=== PATIENT | female | born 1995 | race Caucasian/White ===

== ENCOUNTER 2017-11-13 03:43 | Emergency (ER) | payer MEDICAID ==
[2017-11-13] MEDS ORDERED: IBUPROFEN 200 MG TAB PO ONE (04:43)
[2017-11-13] MEDS ORDERED: OSELTAMIVIR PHOSPHATE 75 MG CAP PO ONE (05:14)
--- NOTE | 2017-11-13 05:14 | EDPHY ---
H & P Stated Complaint: cough, fever Time Seen by Provider: 11/13/17 04:13 HPI/ROS: HPI The patient presents with cough and fever which began about 24 hr ago which are associated with generalized malaise and myalgias. Symptoms have been constant though getting progressively worse. She has 2 sick children at home who have tested positive for flu A over the last 4 days. She has taken Excedrin for her symptoms with some improvement. REVIEW OF SYSTEMS Constitutional: Positive for fever Eyes: No discharge. ENT: No sore throat. Cardiovascular: No chest pain, no palpitations. Respiratory: No cough, no shortness of breath. Gastrointestinal: No abdominal pain, no vomiting. Genitourinary: No hematuria. Musculoskeletal: No back pain. Skin: No rashes. Neurological: No headache. PMHx: Healthy Soc Hx: Lives at home with family, works at an assisted living facility PHYSICAL General Appearance: Alert, no distress Eyes: Pupils equal and round no pallor or injection ENT, Mouth: Mucous membranes moist Respiratory: There are no retractions, lungs are clear to auscultation Cardiovascular: Tachycardic rate with regular rhythm Gastrointestinal: Abdomen is soft and non-tender, no masses, bowel sounds normal Neurological: A&O, moves all extremities Skin: Warm and dry, no rashes Musculoskeletal: Neck is supple non tender Extremities: symmetrical, full range of motion Psychiatric: Patient is oriented X 3, there is no agitation Source: Patient Exam Limitations: No limitations - Personal History LMP (Females 10-55): Extended Cycle BCP/Inj Current Tetanus/Diphtheria Vaccine: Yes Tetanus Vaccine Date: 2015 - Medical/Surgical History Hx Asthma: No Hx Chronic Respiratory Disease: No Hx Diabetes: No Hx Cardiac Disease: No Hx Renal Disease: No Hx Cirrhosis: No Hx Alcoholism: No Hx HIV/AIDS: No Hx Splenectomy or Spleen Trauma: No Other PMH: denies - Social History Smoking Status: Never smoked Constitutional: Initial Vital Signs Temperature (C) 38.3 C 11/13/17 03:53 Heart Rate 122 H 11/13/17 03:53 Respiratory Rate 18 11/13/17 03:53 Blood Pressure 121/76 H 11/13/17 03:53 O2 Sat (%) 94 11/13/17 03:53 O2 Delivery Mode Room Air Allergies/Adverse Reactions: codeine Allergy (Verified 11/13/17 03:56) Hives Milk Containing Products [dairy] Allergy (Verified 11/13/17 03:56) soy Allergy (Verified 11/13/17 03:56) Home Medications: Medication Instructions Recorded Oseltamivir Phosphate [Tamiflu 75 75 mg PO BID 5 Days cap 11/13/17 mg (*)] Medical Decision Making Differential Diagnosis: 22-year-old female presents with 1 day of cough, malaise, myalgias, fever. On exam, she is febrile and tachycardic. We have given her a dose of ibuprofen here. Rapid flu is positive for flu A. I will initiate treatment given 24 hr of symptoms. I have discussed supportive measures as well. Differential diagnoses considered include influenza, strep pharyngitis, pneumonia. - Data Points Laboratory Results: 11/13/17 04:09 Nasal Influenza A PCR FLU A DETECTED H (NEGATIVE) Nasal Influenza B PCR NEGATIVE FOR FLU B (NEGATIVE) RSV (PCR) NEGATIVE FOR RSV (NEGATIVE) Medications Given: Discontinued Medications Ibuprofen (Motrin) 400 mg PO EDNOW ONE Stop: 11/13/17 04:44 Last Admin: 11/13/17 05:02 Dose: 400 mg Departure - Departure Disposition: Home, Routine, Self-Care Clinical Impression: Influenza A Condition: Good Instructions: Influenza (ED) Additional Instructions: Please take the Tamiflu as prescribed. You can take ibuprofen 400 mg with acetaminophen 650 mg every 6 hr as needed for your fever and muscle aches. Return to the emergency department if your worse in any way. Referrals: [facility],. [Clinic] - As per Instructions Prescriptions: Oseltamivir Phosphate [Tamiflu 75 mg (*)] 75 mg PO BID 5 Days cap
[2017-11-13 05:29] VITALS: BP 121/74; PULSE 74; RESP 16; TEMP 100; O2SAT 96
== END 2017-11-13 05:29 | disposition home or self-care (01) ==
DX: J10.1 Influenza due to other identified influenza virus with other respiratory manifestations (principal)

== ENCOUNTER 2018-12-15 21:27 | Emergency (ER) | payer MEDICAID ==
[2018-12-15] MEDS ORDERED: IBUPROFEN 200 MG TAB PO ONE (21:46)
[2018-12-15] MEDS ORDERED: CEPHALEXIN 500 MG CAP PO ONE (21:47)
--- NOTE | 2018-12-15 21:52 | EDPHY ---
General Time Seen by Provider: 12/15/18 21:47 Narrative: CLINICAL IMPRESSION: Left foot pain, spider bite with mild cellulitis ASSESSMENT/PLAN: Patient is a 23-year-old female with no significant medical history presents to the emergency department with complaints of left foot pain after dropping a heavy metal object onto yesterday as well as a spider bite on her right thigh with increasing redness. Physical exam reveals 3 cm circumferential erythema around spider bite consistent with mild cellulitis. There is no evidence of abscess, necrotizing skin infection or deep space infection. Patient was given Keflex. Left foot x-ray was negative. There is no evidence of fracture, dislocation or compartment syndrome. Patient is well established with PCP, she will follow up for wound check. Also given a podiatry referral. Return precautions discussed. DIFFERENTIAL DX: Differential diagnosis including but not limited to fracture, compartment syndrome, contusion, insect bite, cellulitis, sepsis, necrotizing skin infection , deep space infection ED COURSE: 2151: Case discussed with Dr. Caputo CHIEF COMPLAINT: Left foot pain, right thigh spider bite HPI: Patient is a 23-year-old female with no significant medical history presents to the emergency department with complaints of left foot pain after dropping a heavy metal object onto it yesterday as well as a spider bite to her right thigh appears more red today. Patient reports a history of fracture to her foot 3 years prior, yesterday she was caring a metal heavy and fill when she accidentally dropped it on her left mid foot. This is the exact location that she had her previous fracture. She reports bruising however denies any swelling. She denies any significant pain at rest however has severe pain with ambulation. She denies any numbness or tingling of the foot or digits. Patient also reports a possible spider bite yesterday, feels that it is grown in size and more painful today. She has not tried anything for pain. She denies any fevers, chills, chest pain or shortness of breath. She has had no nausea or vomiting and her appetite has been normal. No history of MRSA infections. PAST MEDICAL HISTORY: Denies Pertinent Past Surgical History: Denies Family History: Not contributory Social History: Denies cigarette smoking or illicit drug use ROS: A full 10 point review of systems was negative except for those mentioned in HPI. PHYSICAL EXAM: General Appearance: Alert, well-appearing and in no acute distress. HENT: Normocephalic, atraumatic. External ears are normal. Nares are clear, mucosa is pink. Oropharynx is clear. Eyes: PERRLA, EOMI. Conjunctiva pink, no pallor or injection. Neck: Supple, nontender, no lymphadenopathy, no midline pain, FROM, no meningismus. Respiratory: There are no retractions, lungs are clear to auscultation. Cardiac: Regular rate and rhythm, no murmurs or gallops. Gastrointestinal: Abdomen is soft, nontender, bowel sounds normal, no masses/ hernia, no rigidity, guarding or focal peritoneal findings. Skin: Warm, dry. Left thigh with 3 cm circumferential area of erythema and mild tenderness to palpation. Upper Extremities: Bilateral upper extremities unremarkable-Intact distal pulses, Full range of motion intact, no tenderness, no ecchymosis or edema. Lower Extremities: Right thigh compartment is soft, mildly tender at site of presumed insect bite. Right lower extremity is otherwise unremarkable. Intact distal pulses, No edema, No tenderness, No cyanosis, full range of motion intact. Left foot with ecchymosis on the dorsal aspect of the midfoot with associated tenderness to palpation. No appreciable edema. No navicular tenderness, no tenderness at the base of the 5th metatarsal, no 1st webspace tenderness. Patient is able to wiggle all toes, 2 point discrimination is intact distally. She has no tenderness of medial or lateral malleoli. No calf tenderness bilaterally. 2+ dorsalis pedis. MEDICAL DECISION MAKING: Patient was seen independently. Secondary supervising physician at time of evaluation was Dr. Caputo, he did not evaluate this patient. Diagnosis: Left foot pain, right thigh spider bite with cellulitis. New, requires workup Summary: Patient is afebrile and not toxic appearing, no acute distress. Physical exam reveals 3 cm circumferential area of erythema around insect bite as well as contusion noted to the dorsal aspect of the left midfoot. There was no evidence of systemic infection, abscess, necrotizing skin infection or deep space infection. Foot x-ray was negative for acute bony abnormality, no findings to suggest fracture, dislocation or compartment syndrome. The patient will be started on Keflex for mild cellulitis, query mildly reactive response and also recommended Benadryl and cortisone cream. She is well established with her primary care provider, I discussed importance of wound check and follow-up. Podiatry consult also given. Clinical lab tests: Not applicable. Independent visualization of images, tracing, or specimens: Yes. Decision to obtain medical records or history from someone other than the patient: No Review / Summarize previous medical records: Yes Discussed patient with another provider: Yes, Dr. Caputo Patient Progress: Stable, discharge. - History Smoking Status: Never smoked - Objective Vital Signs: Initial Vital Signs Temperature (C) 36.8 C 12/15/18 21:30 Heart Rate 75 12/15/18 21:30 Respiratory Rate 16 12/15/18 21:30 Blood Pressure 134/69 H 12/15/18 21:30 O2 Sat (%) 96 12/15/18 21:30 O2 Delivery Mode Room Air Allergies/Adverse Reactions: codeine Allergy (Verified 12/15/18 21:30) Hives Milk Containing Products [dairy] Allergy (Verified 12/15/18 21:30) soy Allergy (Verified 12/15/18 21:30) Home Medications: Medication Instructions Recorded Cephalexin [Keflex (*)] 500 mg PO Q6H #28 cap 12/15/18 Medications Given: Discontinued Medications Cephalexin HCl (Keflex) 500 mg PO EDNOW ONE PRN Reason: Protocol Stop: 12/15/18 21:48 Last Admin: 12/15/18 21:49 Dose: 500 mg Ibuprofen (Motrin) 400 mg PO EDNOW ONE Stop: 12/15/18 21:47 Last Admin: 12/15/18 21:49 Dose: 400 mg Departure - Departure Disposition: Home, Routine, Self-Care Clinical Impression: Spider bite, Metatarsalgia, left foot, Contusion Condition: Good Instructions: Cellulitis (ED), Insect Bite or Sting (ED), Foot Contusion (ED) Additional Instructions: DISCHARGE INSTRUCTIONS FROM YOUR DOCTOR Thank you for visiting our emergency department today. Please keep in mind that discharge from the emergency department does not mean that there is nothing wrong - it simply means that we have not identified an emergency condition that requires further evaluation or treatment in the hospital. You should always plan to follow up with primary care for re-evaluation of your condition in the next 2-3 days. You have also been provided a referral for Podiatry, follow-up should you have continued pain. Rest, ice (on and off), elevate the foot as much possible above the level of the heart to decrease pain and swelling. Use the postop shoe as needed for comfort. For pain, Ibuprofen 400 mg every 6 hours. Do not exceed 2400 mg of ibuprofen in 24 hours. Stop taking this if it upsets her stomach. Tylenol 500 mg every 6 hours. Do not exceed 3000 mg in a 24-hour period. Continue your regular medications as prescribed. Return for increased pain or swelling, numbness, tingling or foot or toes, calf pain, paleness or coolness of the foot or toes or for any worsening or worrisome symptoms. Rest, drink plenty of fluids, healthy foods, all to to help your immune system fight the infection and to help the healing process. Keep the wound area clean. Wear loose clothing. Clean the wound areas with soap and water, at least twice daily, then apply antibiotic ointment and a dressing. Change the dressings at least twice daily and/or when soiled. In regards to her spider bite, Apply clean, warm compresses as much as possible. You may try Benadryl as needed for itching, 25 mg every 6-8 hours. You may also try an [id number] hydrocortisone cream. Elevate the affected limb as much as possible above the level of the heart. Keflex (antibiotic) as prescribed four times daily, for the next 7 days. Consume yogurt and take over the counter probiotics to help prevent diarrhea from the antibiotics. Return for persistent or recurrent fever, vomiting, inability to tolerate the antibiotic(s) by mouth, redness, swelling, warmth, or streaking around the wound , increased redness outside the marked lines, new lesions, extremity swelling, pain out of proportion to what you would expect for this infection, chest or abdominal pain, vomiting, throat tightness, facial swelling, difficulty breathing or swallowing, sores in the mouth or the eyes, or for any other new, worsening or worrisome symptoms. People present with illnesses and injuries in different ways, and it is always possible that we have missed something. You may always return for re-evaluation if symptoms worsen or if they are not improving or if you develop new/different symptoms. Again, thank you for choosing our emergency department. We hope that you feel better. Referrals: Magui Hughes MD [Medical Doctor] - 1-2 days without fail Radha Will [Doctor of Podiatric Medicine] - 2-3 days, call for appt. NONE *PRIMARY CARE P,. [Primary Care Provider] - As per Instructions Prescriptions: Cephalexin [Keflex (*)] 500 mg PO Q6H #28 cap
[2018-12-15 22:43] VITALS: BP 136/89
== END 2018-12-15 22:42 | disposition home or self-care (01) ==
DX: S70.361A Insect bite (nonvenomous), right thigh, initial encounter (principal); M77.42 Metatarsalgia, left foot; S90.32XA Contusion of left foot, initial encounter; W20.8XXA Other cause of strike by thrown, projected or falling object, initial encounter
CPT/HCPCS: L4386